=== PATIENT | male | born 1980 | race Caucasian/White ===

== ENCOUNTER 2018-09-23 01:53 | Emergency (ER) | payer OTHER ==
[~2018-09-23] VITALS: Ht 190.5 cm; Wt 90.0 kg
[~2018-09-23 01:53] MED LIST: CETI10CA PO; IBUPROFEN 200 MG TABLET ONE; IBUPROFEN 200 MG TABLET PO ONE
[2018-09-23 03:10] VITALS: BP 122/82
== END 2018-09-23 03:54 | disposition home or self-care (01) ==
LOC: ED 02:24
DX: S63.521A Sprain of radiocarpal joint of right wrist, initial encounter (principal); W19.XXXA Unspecified fall, initial encounter; Y93.89 Activity, other specified; Y92.410 Unspecified street and highway as the place of occurrence of the external cause; Y99.8 Other external cause status
CPT/HCPCS: 99284

== ENCOUNTER 2020-09-12 21:10 | Emergency (ER) | payer OTHER ==
[~2020-09-12] VITALS: Ht 190.5 cm; Wt 88.0 kg
[~2020-09-12 21:10] MED LIST changes: -IBUPROFEN 200 MG TABLET ONE; -IBUPROFEN 200 MG TABLET PO ONE
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
[2020-09-12 21:13] VITALS: BP 117/78
--- NOTE | 2020-09-12 21:18 | NUR ---
ER PROVIDER AT BEDSIDE TO DISCUSS POC.
--- NOTE | 2020-09-12 22:02 | NUR ---
PATIENT SITTING IN GURNEY, ATTACHED TO VITALS MACHINE, CALL LIGHT WITHIN REACH, NO FURTHER NEEDS AT THIS TIME.
--- NOTE | 2020-09-12 23:24 | NUR ---
Patient/Caregiver given discharge instructions and they have confirmed that they understand the instructions. Patient ambulatory with steady gait.
== END 2020-09-12 23:25 | disposition home or self-care (01) ==
LOC: ED 21:29
DX: S61.237A Puncture wound without foreign body of left little finger without damage to nail, initial encounter (principal); W46.0XXA Contact with hypodermic needle, initial encounter; Y93.89 Activity, other specified; Y92.89 Other specified places as the place of occurrence of the external cause; Y99.8 Other external cause status
CPT/HCPCS: 36415; 86705; 86706; 86803; 87340; 87806; 99283; G0475